=== PATIENT | male | born 1990 | race Caucasian/White ===

== ENCOUNTER 2017-05-02 18:42 | Emergency (ER) | payer SELFPAY ==
[~2017-05-02] VITALS: Ht 167.6 cm; Wt 80.2 kg
[2017-05-02 18:46] VITALS: BP 151/89; PULSE 84; RESP 16; TEMP 97.8; O2SAT 98
--- NOTE | 2017-05-02 19:22 | PD ---
HPI Chief Complaint: Pain: Acute or Chronic Time Seen by Provider: 19:15 Travel History International Travel<30 days: No Contact w/Intl Traveler<30days: No Traveled to known affect area: No History of Present Illness HPI 26-year-old male presents to the emergency room for evaluation of bilateral, volar wrist pain with radiation into his upper arms and hands. He has associated numbness and tingling in the tips of all of the fingers. Patient first had symptoms several years ago and was diagnosed with carpal tunnel syndrome but never followed up. States it went away on its own. It recurred about one week ago. He says this time it hurts worse than before. Patient has not taken anything or done anything for his symptoms. 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 His father has carpal tunnel syndrome and is scheduled for surgery. [facility] Past Medical History Medical History: Denies Significant Hx Influenza Vaccination: No Past Surgical History Genitourinary Surgery: Yes ("testicle contusion" as a child) Social History Alcohol Use: Yes (couple times per week) Tobacco Use: Yes (1ppd) Substance Use: No Allergies-Medications (Allergen,Severity, Reaction): Coded Allergies: No Known Drug Allergies (Verified Allergy, Unknown, 05/02/17) Reported Meds & Prescriptions Reported Meds & Active Scripts Active Ibuprofen 800 Mg Tab 800 Mg PO Q8H PRN Review of Systems Except as stated in HPI: all other systems reviewed are Neg Physical Exam Narrative GENERAL: Well-nourished, well-developed male in no acute distress. Afebrile. Ambulatory. SKIN: Focused skin assessment warm/dry. No erythema or ecchymosis. HEAD: Normocephalic. EYES: No scleral icterus. No injection or drainage. NECK: Supple, trachea midline. No JVD or lymphadenopathy. CARDIOVASCULAR: Regular rate and rhythm without murmurs, gallops, or rubs. RESPIRATORY: Breath sounds equal bilaterally. No accessory muscle use. MUSCULOSKELETAL: No cyanosis or obvious edema. 2+ radial pulses bilaterally. Positive Tinel sign and Phalen sign. Full range of motion of bilateral upper extremities. Data Data Last Documented VS Vital Signs Date Time Temp Pulse Resp B/P Pulse Ox O2 Delivery O2 Flow Rate FiO2 05/02/17 18:46 97.8 84 16 151/89 98 MDM Medical Decision Making Medical Screen Exam Complete: Yes Emergency Medical Condition: Yes Medical Record Reviewed: Yes Differential Diagnosis Carpal tunnel syndrome, peripheral neuropathy, diabetic neuropathy Narrative Course 26-year-old male with history of carpal tunnel syndrome presents to the emergency room for evaluation of bilateral volar wrist pain with radiation in the hands associated numbness and tingling to the tips of his fingers. Symptoms have been present for 1 week. No trauma or injury. 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 Physical exam reveals no edema, erythema, ecchymosis. Full range of motion of bilateral upper extremities. 2+ radial pulses bilaterally. Distal sensation intact bilaterally. Positive Tinel and phalen signs bilaterally. Diagnosis Primary Impression: Carpal tunnel syndrome Qualified Code: G56.03 - Bilateral carpal tunnel syndrome Referrals: Primary Care Physician Patient Instructions: Carpal Tunnel Syndrome (ED), General Instructions Departure Forms: Tests/Procedures, Work Release Enter return to work date: May 04, 2017 Additional Instructions: Rest and drink plenty of fluids. Purchase [id number] splints for both wrists. Take ibuprofen with food as directed, as needed for pain. Apply ice to the affected area for 20 minutes at a time, as needed for pain and swelling. Follow-up with a primary care physician. Return to the emergency room for worsening symptoms. Med/Other Pt SpecificInfo: Prescription(s) given Scripts Ibuprofen 800 Mg [id number] Mg PO Q8H PRN (Pain/Inflammation) #21 TAB Ref 0 Prov:Archana Reynaga MD 05/02/17 Disposition: 01 DISCHARGE HOME Condition: Stable Jessica Mahmood May 02, 2017 19:22
[2017-05-02] MEDS ORDERED: IBUP800T23 PO (19:26)
== END 2017-05-02 19:50 | disposition home or self-care (01) ==
LOC: PHEFT 18:42
DX: G56.03 Carpal tunnel syndrome, bilateral upper limbs (principal)
CPT/HCPCS: 99283

== ENCOUNTER 2017-09-10 20:10 | Emergency (ER) | payer SELFPAY ==
[~2017-09-10] VITALS: Ht 167.6 cm; Wt 77.7 kg
[~2017-09-10 20:10] MED LIST: IBUP1TAB7 PO
[2017-09-10 20:12] VITALS: BP 137/70; PULSE 87; RESP 18; TEMP 97.3; O2SAT 99
[2017-09-10] MEDS ORDERED: NAPR500T2 PO (21:59)
[2017-09-10] MEDS ORDERED: ALBUAER3 INH (21:59)
--- NOTE | 2017-09-10 22:00 | PD ---
HPI Chief Complaint: Cold / Flu Symptoms Time Seen by Provider: 21:16 Travel History International Travel<30 days: No Contact w/Intl Traveler<30days: No Traveled to known affect area: No History of Present Illness HPI This is a 26-year-old male who presents to the emergency department with body aches, fevers, chills, sore throat and cough, constant for 2 days, moderate severity with no associated vomiting or diarrhea. He denies any history of IV drug use. PFSH Past Medical History Medical History: Denies Significant Hx Diminished Hearing: No Immunizations Current: No Tetanus Vaccination: > 5 Years Influenza Vaccination: No Past Surgical History Eye Surgery: Yes (lens) Genitourinary Surgery: Yes ("testicle contusion" as a child) Social History Alcohol Use: Yes (couple times per week) Tobacco Use: Yes (1ppd) Substance Use: Yes (pot) Allergies-Medications (Allergen,Severity, Reaction): Coded Allergies: No Known Drug Allergies (Verified Allergy, Unknown, 09/10/17) Reported Meds & Prescriptions Reported Meds & Active Scripts Active No Active Prescriptions or Reported Medications Review of Systems Except as stated in HPI: all other systems reviewed are Neg Physical Exam Narrative GENERAL:Well appearing, no acute distress SKIN: Focused skin assessment warm and dry. HEAD: Atraumatic. Normocephalic. EYES: Pupils equal and round. No injection or drainage. ENT: Moist mucous membranes. Mild posterior pharyngeal erythema with no exudates. NECK: Trachea midline. No cervical lymphadenopathy. CARDIOVASCULAR: Regular rate and rhythm. No murmur appreciated. RESPIRATORY: Mild wheezing in the bilateral upper lobes, no increased work of breathing GASTROINTESTINAL: Abdomen soft, non-tender, nondistended. MUSCULOSKELETAL: No obvious deformities. NEUROLOGICAL: Awake and alert. No obvious cranial nerve deficits. Moving all extremities. PSYCHIATRIC: Appropriate mood and affect; insight and judgment normal. Data Data Last Documented VS Vital Signs Date Time Temp Pulse Resp B/P (MAP) Pulse Ox O2 Delivery O2 Flow Rate FiO2 09/10/17 20:33 (92) 09/10/17 20:12 97.3 87 18 99 Orders Orders Influenzae A/B Antigen (09/10/17 21:21) MDM Medical Decision Making Medical Screen Exam Complete: Yes Emergency Medical Condition: Yes Interpretation(s) Afebrile, no tachycardia, normotensive Influenza is negative Differential Diagnosis Viral syndrome, pneumonia, influenza, strep pharyngitis Narrative Course This is a 26-year-old male who presents to the emergency department with flulike symptoms. He is nontoxic on exam. Influenza is negative. Patient will be treated with symptomatic management and discharged home. Diagnosis Primary Impression: Viral syndrome Patient Instructions: General Instructions Additional Instructions: If you develop severe chest pain, shortness of breath, sweating, lightheadedness , dizziness or difficulty breathing return to the emergency department immediately. Followup with your primary care physician in 2-3 days if your symptoms are not resolved. Med/Other Pt SpecificInfo: Prescription(s) given Scripts Albuterol 8.5 GM Inh (Proair Hfa 8.5 GM Inh) 90 Mcg/Act Aer 2 PUFF INH Q4-6H Y for SHORTNESS OF BREATH, #1 INHALER 0 Refills 108 mcg/actuation Prov: Hodan Whiting MD 09/10/17 Naproxen (Naproxen) 500 Mg Tab 500 MG PO BID Y for PAIN SCALE 4 TO 10, #20 TAB 0 Refills Prov: Hodan Whiting MD 09/10/17 Disposition: 01 DISCHARGE HOME Condition: Stable Hodan Whiting MD Sep 10, 2017 22:00
== END 2017-09-10 22:13 | disposition home or self-care (01) ==
LOC: PHEFT 20:10
DX: B34.9 Viral infection, unspecified (principal); F17.200 Nicotine dependence, unspecified, uncomplicated
CPT/HCPCS: 87804; 99283

== ENCOUNTER 2017-09-17 17:46 | Emergency (ER) | payer SELFPAY ==
[~2017-09-17] VITALS: Ht 167.6 cm; Wt 79.0 kg
[~2017-09-17 17:46] MED LIST changes: +ALBUAER3 INH; -IBUP1TAB7 PO; +NAPR500T2 PO
[2017-09-17 18:04] VITALS: BP 160/85; PULSE 85; RESP 16; TEMP 98.1; O2SAT 99
--- NOTE | 2017-09-17 18:40 | PD ---
HPI Chief Complaint: Cold / Flu Symptoms Time Seen by Provider: 18:21 Travel History International Travel<30 days: No Contact w/Intl Traveler<30days: No Traveled to known affect area: No History of Present Illness HPI Patient is a 26-year-old male presents emergency department for second evaluation of cough congestion and body aches headache. He has a complaint of bilateral flank pain which started since his last visit to the ER on September 10. He states she's been having symptoms for nearly 2 weeks at this time. He states for the flu on his last visit diagnosed of viral illness and recommended for symptomatic management. He states that he is uncomfortable with that. States he's been coughing productive of green sputum, continues to smoke a half pack cigarettes per day. He also states she's had a chemical exposure in the past injuring his lungs. Denies any chest pain shortness of breath fevers abdominal pain nausea vomiting. States symptoms for 2 weeks, constant, context as above, associated signs symptoms as above. PFSH Past Medical History Diminished Hearing: No Immunizations Current: No Past Surgical History Eye Surgery: Yes (lens) Genitourinary Surgery: Yes ("testicle contusion" as a child) Social History Alcohol Use: Yes (couple times per week) Tobacco Use: Yes (1ppd) Substance Use: Yes (pot) Allergies-Medications (Allergen,Severity, Reaction): Coded Allergies: No Known Drug Allergies (Verified Allergy, Unknown, 09/17/17) Reported Meds & Prescriptions Reported Meds & Active Scripts Active Proair Hfa 8.5 GM Inh (Albuterol Sulfate) 90 Mcg/Act Aer 1 Puff INH Q4H PRN 108 mcg/actuation Prednisone 20 Mg Tab 40 Mg PO DAILY 5 Days Take 40 mg (2 tablets) daily for 5 days Azithromycin 250 Mg Tab 250 Mg PO DIRECTED Take 2 tabs (500 mg) on day 1 then 1 tab daily x 4 days. Review of Systems Except as stated in HPI: all other systems reviewed are Neg Physical Exam Narrative GENERAL: Well-developed well-nourished in no obvious distress. SKIN: Focused skin assessment warm/dry. HEAD: Atraumatic. Normocephalic. EYES: Pupils equal and round. No scleral icterus. No injection or drainage. ENT: No nasal bleeding or discharge. Mucous membranes pink and moist. TMs clear bilaterally, oropharynx clear and moist. Exhibiting a dry cough. NECK: Trachea midline. No JVD. CARDIOVASCULAR: Regular rate and rhythm. No murmur appreciated. RESPIRATORY: No accessory muscle use. Clear to auscultation. Breath sounds equal bilaterally. GASTROINTESTINAL: Abdomen soft, non-tender, nondistended. Hepatic and splenic margins not palpable. No CVA tenderness. MUSCULOSKELETAL: No obvious deformities. No clubbing. No cyanosis. No edema. No tenderness to palpation of either flank. NEUROLOGICAL: Awake and alert. No obvious cranial nerve deficits. Motor grossly within normal limits. Normal speech. PSYCHIATRIC: Appropriate mood and affect; insight and judgment normal. Data Data Last Documented VS Vital Signs Date Time Temp Pulse Resp B/P (MAP) Pulse Ox O2 Delivery O2 Flow Rate FiO2 09/17/17 19:23 98.2 82 15 150/78 (102) 99 Orders Orders Chest, Pa & Lat (09/17/17 ) Urinalysis - C+S If Indicated (09/17/17 18:38) Ed Discharge Order (09/17/17 19:13) Labs Laboratory Tests Test 09/17/17 18:47 Urine Color YELLOW Urine Turbidity MARKED Urine pH 7.0 Urine Specific [place] 1.020 Urine Protein NEG mg/dL Urine Glucose (UA) NEG mg/dL Urine Ketones NEG mg/dL Urine Occult Blood NEG Urine Nitrite NEG Urine Bilirubin NEG Urine Leukocyte Esterase NEG Urine Squamous Epithelial Cells 0-5 /hpf Urine Amorphous Sediment LARGE Urine Mucus OCC /lpf Microscopic Urinalysis Comment CULT NOT INDICATED MDM Medical Decision Making Medical Screen Exam Complete: Yes Emergency Medical Condition: Yes Differential Diagnosis URI, bronchitis, pneumonia. Narrative Course patient roomed emergency department, given smoking history bronchitis is to be considered. Given the prolonged illness she has indications for this azithromycin. Chest x-ray shows no acute cardiopulmonary abnormality. Note will be started on empiric steroids and azithromycin albuterol by an inhaler as needed. Discussed need follow-up the primary care physician, smoking cessation and its benefits. Discussed return to ED criteria and expect 6-8 weeks of illness. He is stable for discharge. Last 24 hours Impressions Chest X-Ray 09/17/17 0000 Signed Impressions: Service Date/Time: Sunday, September 17, 2017 18:45 - CONCLUSION: No acute disease. Small foreign body in the left lung. David Ha MD Diagnosis Primary Impression: Bronchitis Patient Instructions: Acute Bronchitis (DC), General Instructions, How to Stop Smoking (DC) Med/Other Pt SpecificInfo: Prescription(s) given Scripts Albuterol 8.5 GM Inh (Proair Hfa 8.5 GM Inh) 90 Mcg/Act Aer 1 PUFF INH Q4H Y for SHORTNESS OF BREATH, #1 INHALER 0 Refills 108 mcg/actuation Prov: Hero Sawyer MD 09/17/17 Prednisone (Prednisone) 20 Mg Tab 40 MG PO DAILY for 5 Days, #10 TAB 0 Refills Take 40 mg (2 tablets) daily for 5 days Prov: Hero Sawyer MD 09/17/17 Azithromycin (Azithromycin) 250 Mg Tab 250 MG PO DIRECTED for Infection, #6 TAB 0 Refills Take 2 tabs (500 mg) on day 1 then 1 tab daily x 4 days. Prov: Hero Sawyer MD 09/17/17 Disposition: 01 DISCHARGE HOME Condition: Stable Hero Sawyer MD Sep 17, 2017 18:40
--- NOTE | 2017-09-17 18:54 | RADRPT ---
EXAM DATE/TIME: 09/17/2017 18:45 [facility] COMPARISON: No previous studies available for comparison. INDICATIONS : Cough and sore throat for a week. MEDICAL HISTORY : Nail fragment in chest. SURGICAL HISTORY : None. ENCOUNTER: Initial ACUITY: 1 week PAIN SCORE: 0/10 LOCATION: Bilateral chest FINDINGS: PA and lateral views of the chest demonstrate the lungs to be symmetrically aerated without evidence of mass, infiltrate or effusion. Small foreign body seen left upper lobe anteriorly. The cardiomedia stinal contours are unremarkable. Osseous structures are intact. CONCLUSION: No acute disease. Small foreign body in the left lung. David Ha MD on September 17, 2017 at 18:51 Board Certified Radiologist. This report was verified electronically.
[2017-09-17 18:58] LABS: BILIRUBIN, URINE NEG (NEG); BLOOD, URINE NEG (NEG); GLUCOSE,URINE NEG (NEG); KETONE, URINE NEG (NEG); NITRITE,URINE NEG (NEG); URINE LEUKOCYTE ESTERASE NEG (NEG)
[2017-09-17 19:12] LABS: AMORPHOUS SEDIMENT, URINE LARGE; MUCUS URINE OCC /lpf (OCC); URINE COLOR YELLOW (YELLW/STRAW)
[2017-09-17] MEDS ORDERED: ALBUAER3 INH (19:12)
[2017-09-17] MEDS ORDERED: AZIT250T3 PO (19:12)
[2017-09-17] MEDS ORDERED: PRED20 PO (19:12)
[2017-09-17 19:13] LABS: SQUAMOUS EPITHELIAL CELL URINE 0-5 /hpf (0-5)
[2017-09-17 19:23] VITALS: BP 150/78; TEMP 98.2
== END 2017-09-17 19:29 | disposition home or self-care (01) ==
LOC: PHED 17:46
DX: J40 Bronchitis, not specified as acute or chronic (principal); F17.210 Nicotine dependence, cigarettes, uncomplicated; F12.90 Cannabis use, unspecified, uncomplicated
CPT/HCPCS: 71046; 81001; 99284

== ENCOUNTER 2017-12-31 19:10 | Emergency (ER) | payer SELFPAY ==
[~2017-12-31] VITALS: Ht 167.6 cm; Wt 83.0 kg
[~2017-12-31 19:10] MED LIST changes: +AZIT250T3 PO; -NAPR500T2 PO; +PRED20 PO
[2017-12-31 19:16] VITALS: BP 153/76; PULSE 86; RESP 18; TEMP 97.4; O2SAT 97
--- NOTE | 2017-12-31 19:43 | PD ---
HPI Chief Complaint: Injury Time Seen by Provider: 19:32 Travel History International Travel<30 days: No Contact w/Intl Traveler<30days: No Traveled to known affect area: No History of Present Illness HPI 27-year-old male presents emergency department complaining of right knee pain for approximately 1 week. Patient states that he was cutting a tree limb in the limb pinned against another tree resulting this pain. Patient says that yesterday he was stooping down and he heard a pop and was unable to stand without difficulty after this event. Says he feels popping each time he bends his knee. Says his pain is mild to moderate in severity, worse with movement, no radiation of pain.His pain is localized to the lateral aspect of patella and along the lateral joint line. Says that he does have some numbness extending from his patella down to the anterior aspect of his padilla to his ankle but denies any pain with this radiation. Says that the knee has swelled up significantly as well. He denies chronic medical issues or medication use. Says he has been using ibuprofen 800 mg for relief of pain. Patient denies any previous injuries to this knee. PFSH Past Medical History ADHD: Yes Diminished Hearing: No Immunizations Current: No Tetanus Vaccination: Unknown Influenza Vaccination: No ?: Not Past Surgical History Eye Surgery: Yes (lens and retinal repair OS) Genitourinary Surgery: Yes ("testicle contusion" surg repair) Social History Alcohol Use: Yes (couple times per week) Tobacco Use: Yes (1ppd) Substance Use: Yes (pot) Allergies-Medications (Allergen,Severity, Reaction): Coded Allergies: No Known Drug Allergies (Verified Allergy, Unknown, 09/17/17) Reported Meds & Prescriptions Reported Meds & Active Scripts Active Keflex (Cephalexin) 500 Mg Cap 500 Mg PO Q8H 7 Days Review of Systems Except as stated in HPI: all other systems reviewed are Neg Physical Exam Narrative GENERAL: Well-nourished, well-developed patient. SKIN: Focused skin assessment warm/dry. HEAD: Normocephalic. EYES: No scleral icterus. No injection or drainage. NECK: Supple, trachea midline. No JVD or lymphadenopathy. CARDIOVASCULAR: Regular rate and rhythm without murmurs, gallops, or rubs. RESPIRATORY: Breath sounds equal bilaterally. No accessory muscle use. MUSCULOSKELETAL: No cyanosis, or edema. Right knee-decreased range of motion secondary to pain however, he is able to flex his knee approximately 90. Tenderness palpation of the lateral superior aspect of the patella with significant edema compared to the left. Neurovascularly intact. Negative varus, negative valgus valgus, negative Apley' s, negative posterior anterior drawer BACK: Nontender without obvious deformity. No CVA tenderness. Data Data Last Documented VS Vital Signs Date Time Temp Pulse Resp B/P (MAP) Pulse Ox O2 Delivery O2 Flow Rate FiO2 12/31/17 19:16 97.4 86 18 153/76 (101) 97 Orders Orders Knee, Complete (4vws) (12/31/17 ) Tetanus/Diphtheria Tox Adult (Tetanus/Di (12/31/17 19:45) Ed Discharge Order (12/31/17 20:33) MDM Medical Decision Making Medical Screen Exam Complete: Yes Emergency Medical Condition: Yes Differential Diagnosis Right knee fracture, right knee sprain, right knee contusion Narrative Course 27-year-old male presents emergency department complaining of right knee pain for approximately 1 week. Patient states that he was cutting a tree limb in the limb pinned against another tree resulting this pain. Patient says that yesterday he was stooping down and he heard a pop and was unable to stand without difficulty after this event. Says he feels popping each time he bends his knee. Says his pain is mild to moderate in severity, worse with movement, no radiation of pain.His pain is localized to the lateral aspect of patella and along the lateral joint line. Says that he does have some numbness extending from his patella down to the anterior aspect of his padilla to his ankle but denies any pain with this radiation. Says that the knee has swelled up significantly as well. He denies chronic medical issues or medication use. Says he has been using ibuprofen 800 mg for relief of pain. Patient denies any previous injuries to this knee. Vital signs are stable. Upon evaluation, there is a small wound over the patella. Tetanus vaccination administered today in the emergency department. Patient will be discharged with Keflex as a prophylactic antibiotic. I suspect the patient does not have great wound care or follow-up as I am concerned about a developing infection. Last Impressions Knee X-Ray 12/31/17 0000 Signed Impressions: Service Date/Time: Sunday, December 31, 2017 20:00 - CONCLUSION: Soft tissue swelling without fracture. David Ha MD Advised on joint pain symptom relief. Patient should follow-up with an orthopedic physician for further evaluation. Follow primary care physician for further treatment and evaluation. He may use Tylenol or Motrin per package instructions for pain. Diagnosis Primary Impression: Knee contusion Qualified Codes: S80.01XA - Contusion of right knee, initial encounter Referrals: Orthopedist Primary Care Physician Additional Instructions: Use ice or heat for symptom relief. Elevate the joint above the heart to reduce swelling. You may use compression with Alfred wrap or similar to reduce swelling. If symptoms persist or worsen, return to the emergency department. Follow up with your primary care physician within 2 days. You were prescribed an antibiotic for the wound on your knee. If your wound becomes more red, painful, start the antibiotic. Consider follow up with an orthopedic physician for further evaluation. Scripts Cephalexin (Keflex) 500 Mg Cap 500 MG PO Q8H for Infection for 7 Days, #21 CAP 0 Refills Prov: Young Rubin MD 12/31/17 Disposition: 01 DISCHARGE HOME Condition: Stable Ivanna Valle Dec 31, 2017 19:43
[2017-12-31] MEDS ORDERED: TETANUS/DIPHTHERIA TOXOID ADULT 0.5 ML VIAL IM ONE (19:45)
--- NOTE | 2017-12-31 20:20 | RADRPT ---
EXAM DATE/TIME: 12/31/2017 20:00 [facility] COMPARISON: No previous studies available for comparison. INDICATIONS : Right anterior knee laceration/pain/swelling after getting pinned between tree & branch. MEDICAL HISTORY : None. SURGICAL HISTORY : None. ENCOUNTER: Initial ACUITY: 1 week PAIN SCORE: 8/10 LOCATION: Right anterior knee FINDINGS: Four view examination of the right knee demonstrates no evidence of fracture or dislocation. Bony mi neralization is normal. The articular surfaces are intact. Soft tissue swelling. The suprapatellar soft tissues have a normal configuration. CONCLUSION: Soft tissue swelling without fracture. David Ha MD on December 31, 2017 at 20:18 Board Certified Radiologist. This report was verified electronically.
[2017-12-31] MEDS ORDERED: CEPH-460 PO (20:32)
== END 2017-12-31 20:42 | disposition home or self-care (01) ==
LOC: PHEFT 19:10
DX: S80.01XA Contusion of right knee, initial encounter (principal); W20.8XXA Other cause of strike by thrown, projected or falling object, initial encounter; Y93.H2 Activity, gardening and landscaping; F17.210 Nicotine dependence, cigarettes, uncomplicated; F90.9 Attention-deficit hyperactivity disorder, unspecified type; Z23 Encounter for immunization
CPT/HCPCS: 73564; 90471; 90714